=== PATIENT | female | born 1995 | race Caucasian/White ===

== ENCOUNTER 2025-01-04 20:05 | Inpatient (IN) | payer MEDICAID ==
[2025-01-04] MEDS ORDERED: Sodium Chloride 0.9% 10 ML Syringe FLUSH PRN (20:13)
[2025-01-04 20:46] LABS: BASOPHILS ABSOLUTE AUTO 0.1 K/mm3 (0.0-0.2); BASOPHILS PERCENT AUTO 0.4 % (0.0-1.0); EOSINOPHILS ABSOLUTE AUTO 0.0 K/mm3 (0.0-0.4); EOSINOPHILS PERCENT AUTO 0.0 % (0.0-6.0); IMMATURE GRAN ABSOLUTE AUTO 0.27 K/mm3 (0.00-0.05); IMMATURE GRAN PERCENT AUTO 1.0 % (0.0-0.4); LYMPHOCYTES ABSOLUTE AUTO 4.6 K/mm3 (1.0-4.8); LYMPHOCYTES PERCENT AUTO 16.6 % (24.0-44.0); MEAN PLATELET VOLUME 10.2 fl (9.4-12.3); MONOCYTES ABSOLUTE AUTO 2.2 K/mm3 (0.0-0.8); MONOCYTES PERCENT AUTO 7.8 % (0.0-8.0); NEUTROPHILS ABSOLUTE AUTO 20.5 K/mm3 (1.8-7.7); NEUTROPHILS PERCENT AUTO 74.2 % (41.0-71.0); NRBC ABSOLUTE 0.00 (0.00-0.02); NRBC PERCENT 0.0 % (0.0-0.2); PLATELET COUNT,PLT 381 K/mm3 (150-400); RED BLOOD CELL COUNT 4.95 M/mm3 (4.10-5.30); WHITE BLOOD CELL COUNT,WBC 27.62 K/mm3 (3.9-11.3)
[2025-01-04 21:03] LABS: A/G RATIO 1.1 (1-2); ALANINE AMINOTRANSFERASE,ALT 23.0 U/L (14-59); ASPARTATE AMNIOTRANSFERASE,AST 19.0 U/L (15-37); BILIRUBIN TOTAL 0.9 mg/dL (0.2-1.0); BLOOD UREA NITROGEN,BUN 37.0 mg/dL (7-18); CHLORIDE,CL 92.0 mEq/L (98-107); CREATININE 2.4 mg/dL (0.55-1.02); EST CRCL DRUG DOSING (CG) 25.29 mL/min; ESTIMATED GFR 28.0 mL/min (>60); PROTEIN TOTAL,TP 8.4 g/dl (6.4-8.2); SODIUM,NA 131.0 mEq/L (136-145)
[2025-01-04 21:19] LABS: CARBON DIOXIDE,CO2 8.0 mEq/L (21-32); POTASSIUM,K 7.3 mEq/L (3.5-5.1)
[2025-01-04 21:20] LABS: GLUCOSE RANDOM 871.0 mg/dL (70-99)
[2025-01-04] MEDS: Insulin Regular, Human 100 Units/ML 10 ML Vial SUBCUT ONE (21:29)
[2025-01-04 21:30] LABS: OSMOLALITY,SERUM 354.0 mosm/kg (280-300)
[2025-01-04 22:03] LABS: PCO2 VENOUS 19.0 mmHg (41-51); PH,VENOUS 7.09 (7.30-7.40); PO2 VENOUS 39.0 mmHG (40-80)
[2025-01-04 22:04] LABS: BASE EXCESS VENOUS -22.2 (-4.0-2.0); BICARBONATE,VENOUS 5.8 meq/L (22-26); O2 SATURATION VENOUS 63.1
[2025-01-04] MEDS ORDERED: Ondansetron 4 MG/2 ML SDV IV PRN (22:09)
[2025-01-04] MEDS ORDERED: 50% Dextrose in Water 50 ML Syringe IVPUSH PRN (22:11)
[2025-01-04] MEDS: Ondansetron 4 MG/2 ML SDV IVPUSH ONE (22:23)
[2025-01-05 00:41] LABS: BLOOD UREA NITROGEN,BUN 38.0 mg/dL (7-18); CREATININE 2.1 mg/dL (0.55-1.02); EST CRCL DRUG DOSING (CG) 28.9 mL/min; ESTIMATED GFR 33.0 mL/min (>60); PHOSPHORUS 4.6 mg/dL (2.6-4.7)
[2025-01-05 00:53] LABS: CHLORIDE,CL 102.0 mEq/L (98-107); SODIUM,NA 137.0 mEq/L (136-145)
[2025-01-05 00:57] LABS: GLUCOSE RANDOM 639.0 mg/dL (70-99)
[2025-01-05 00:58] LABS: CARBON DIOXIDE,CO2 6.0 mEq/L (21-32); POTASSIUM,K 5.7 mEq/L (3.5-5.1)
[2025-01-05 01:02] LABS: APPEARANCE,URINE CLEAR (Clear); GLUCOSE,URINE 2+ (Negative); OCCULT BLOOD,URINE 1+ (Negative)
[2025-01-05] MEDS: Calcium Gluconate 10% 1 GM/10 ML SDV IVPUSH ONE (01:04)
[2025-01-05 01:18] LABS: SQUAMOUS EPITHELIAL CELLS,UR 0-5 /hpf (0-5)
[2025-01-05] MEDS: Calcium Gluconate 10% 1 GM/10 ML SDV ONE (01:23)
[2025-01-05 04:42] LABS: BLOOD UREA NITROGEN,BUN 31.0 mg/dL (7-18); CHLORIDE,CL 105.0 mEq/L (98-107); CREATININE 1.7 mg/dL (0.55-1.02); EST CRCL DRUG DOSING (CG) 35.7 mL/min; ESTIMATED GFR 42.0 mL/min (>60); GLUCOSE RANDOM 339.0 mg/dL (70-99); PHOSPHORUS 1.9 mg/dL (2.6-4.7); POTASSIUM,K 4.1 mEq/L (3.5-5.1); SODIUM,NA 140.0 mEq/L (136-145)
[2025-01-05 04:48] LABS: CARBON DIOXIDE,CO2 18.0 mEq/L (21-32)
[2025-01-05 08:53] LABS: BLOOD UREA NITROGEN,BUN 28.0 mg/dL (7-18); CARBON DIOXIDE,CO2 23.0 mEq/L (21-32); CHLORIDE,CL 108.0 mEq/L (98-107); CREATININE 1.7 mg/dL (0.55-1.02); EST CRCL DRUG DOSING (CG) 35.7 mL/min; ESTIMATED GFR 42.0 mL/min (>60); GLUCOSE RANDOM 224.0 mg/dL (70-99); PHOSPHORUS 1.9 mg/dL (2.6-4.7); POTASSIUM,K 3.8 mEq/L (3.5-5.1); SODIUM,NA 141.0 mEq/L (136-145)
[2025-01-05] MEDS: Potassium Phosphates 30 MMOLE in Sodium Chloride 0.9% 500 ML IV ONE (10:28)
[2025-01-05] MEDS: Insulin Glargine,Human Rec. Analog 100 Units/ML 3 ML Pen SUBCUT SCH ×2 (12:19→21:34)
[2025-01-05] MEDS ORDERED: Insulin Lispro 100 Unit/ML 3 ML KwikPen SUBCUT SCH (17:30)
[2025-01-06 04:30] LABS: BASOPHILS ABSOLUTE AUTO 0.0 K/mm3 (0.0-0.2); BASOPHILS PERCENT AUTO 0.2 % (0.0-1.0); EOSINOPHILS ABSOLUTE AUTO 0.0 K/mm3 (0.0-0.4); EOSINOPHILS PERCENT AUTO 0.1 % (0.0-6.0); IMMATURE GRAN ABSOLUTE AUTO 0.04 K/mm3 (0.00-0.05); IMMATURE GRAN PERCENT AUTO 0.3 % (0.0-0.4); LYMPHOCYTES ABSOLUTE AUTO 3.0 K/mm3 (1.0-4.8); LYMPHOCYTES PERCENT AUTO 26.0 % (24.0-44.0); MEAN PLATELET VOLUME 10.1 fl (9.4-12.3); MONOCYTES ABSOLUTE AUTO 0.7 K/mm3 (0.0-0.8); MONOCYTES PERCENT AUTO 6.3 % (0.0-8.0); NEUTROPHILS ABSOLUTE AUTO 7.7 K/mm3 (1.8-7.7); NEUTROPHILS PERCENT AUTO 67.1 % (41.0-71.0); NRBC ABSOLUTE 0.00 (0.00-0.02); NRBC PERCENT 0.0 % (0.0-0.2); PLATELET COUNT,PLT 173 K/mm3 (150-400); RED BLOOD CELL COUNT 3.62 M/mm3 (4.10-5.30); WHITE BLOOD CELL COUNT,WBC 11.54 K/mm3 (3.9-11.3)
[2025-01-06 05:11] LABS: A/G RATIO 1.0 (1-2); ALANINE AMINOTRANSFERASE,ALT 19.0 U/L (14-59); ASPARTATE AMNIOTRANSFERASE,AST 22.0 U/L (15-37); BILIRUBIN TOTAL 0.8 mg/dL (0.2-1.0); BLOOD UREA NITROGEN,BUN 10.0 mg/dL (7-18); CARBON DIOXIDE,CO2 23.0 mEq/L (21-32); CHLORIDE,CL 108.0 mEq/L (98-107); CREATININE 0.9 mg/dL (0.55-1.02); EST CRCL DRUG DOSING (CG) 67.44 mL/min; ESTIMATED GFR 90.0 mL/min (>60); GLUCOSE RANDOM 129.0 mg/dL (70-99); POTASSIUM,K 3.9 mEq/L (3.5-5.1); PROTEIN TOTAL,TP 5.4 g/dl (6.4-8.2); SODIUM,NA 141.0 mEq/L (136-145)
[2025-01-06] MEDS: Insulin Glargine,Human Rec. Analog 100 Units/ML 3 ML Pen SUBCUT SCH (09:30)
[2025-01-06] MEDS ORDERED: Insulin Glargine,Human Rec. Analog 100 Units/ML 3 ML Pen SUBCUT SCH (21:00)
== END 2025-01-06 17:10 | disposition home or self-care (01) | DRG 639 ==
LOC: JD.ED 20:05 → JD.ICU 21:30
PROVIDERS: ADMIT Family Medicine; ATTEND Internal Medicine
DX: E10.10 Type 1 diabetes mellitus with ketoacidosis without coma (principal); Z88.8 Allergy status to other drugs, medicaments and biological substances; Z79.4 Long term (current) use of insulin
CPT/HCPCS: 36415; 80048; 80053; 81001; 82010; 82800; 82803; 82947; 83036; 83735; 83930; 84100; 84132; 85025; 93005; 93010; 96360; 99285; 99285-25; A9270-GY; J0612; J1815-GY; J2405; J3490; J7030; J7040; S5010